=== PATIENT | female | born 1970 | race Caucasian/White ===

== ENCOUNTER 2018-04-22 12:35 | Outpatient (CLI) | payer BC | END 2018-04-22 12:36 | disposition home or self-care (01) | LOC: BICMAMMO 12:35 | PROVIDERS: ATTEND Physician Assistant Medical | DX: N64.9 Disorder of breast, unspecified (principal) | CPT/HCPCS: 77066; G0279 ==

== ENCOUNTER 2018-12-02 09:21 | Outpatient (CLI) | payer BC ==
[2018-12-02 11:36] LABS: #Basophils 0.1 thou/uL (0.0-0.2); #Eosinphils 0.2 thou/uL (0.0-0.7); #Monocytes 0.4 thou/uL (0.11-0.59); %Basophils 1.3 % (0.0-1.0); %Eosinophils 3.5 % (0.0-10.0); %Lymphocytes 34.6 % (21.0-51.0); %Monocytes 7.6 % (0.0-10.0); %Neutrophils 53.1 % (42.0-75.0); Hemoglobin 13.7 g/dL (12.0-16.0); Mean Corpuscular HGB CONC 32.6 g/dL (32.0-36.0); Mean Corpuscular Hemoglobin 27.8 pg (27.0-31.0); Mean Corpuscular Volume 85.1 fL (78.0-98.0); Mean Platelet Volume 8.4 fL (7.4-10.4); Platelet Count 268 thou/uL (130-400); RBC Distribution Width 13.7 % (11.5-14.5); Red Blood Cell (RBC) Count 4.93 mill/uL (4.20-5.40); White Blood Cell (WBC) Count 5.6 thou/uL (4.8-10.8)
[2018-12-02 11:39] LABS: Anion Gap 12 mmol/L (10-20); BUN (Urea Nitrogen) 15 mg/dL (7.0-18.7); Calc. Creatinine Clearance 0 mL/min (70-130); Calcium 9.5 mg/dL (7.8-10.44); Carbon Dioxide 25 mmol/L (22-29); Chloride 109 mmol/L (98-107); Estimated GFR-MDRD 76; Glucose 84 mg/dL (70-105); Sodium 141 mmol/L (136-145)
== END 2018-12-02 09:22 | disposition home or self-care (01) ==
LOC: LABBT 09:21
PROVIDERS: ATTEND Specialist
DX: Z01.818 Encounter for other preprocedural examination (principal); Q83.8 Other congenital malformations of breast
CPT/HCPCS: 80048; 85025; 93005; 93010

== ENCOUNTER 2023-08-02 17:00 | Outpatient (CLI) | payer BC | END 2023-08-02 17:01 | disposition home or self-care (01) | LOC: SLEEPLAB 17:00 | PROVIDERS: ATTEND Family Medicine | DX: G47.33 Obstructive sleep apnea (adult) (pediatric) (principal); G47.00 Insomnia, unspecified; R06.83 Snoring; K21.9 Gastro-esophageal reflux disease without esophagitis; F41.9 Anxiety disorder, unspecified; E66.9 Obesity, unspecified; F32.A Depression, unspecified; E55.9 Vitamin D deficiency, unspecified; E78.00 Pure hypercholesterolemia, unspecified; Z68.29 Body mass index [BMI] 29.0-29.9, adult | CPT/HCPCS: 95810 ==

== ENCOUNTER 2024-02-21 11:52 | Outpatient (CLI) | payer BC | END 2024-02-21 11:53 | disposition home or self-care (01) | LOC: BICMAMMO 11:52 | PROVIDERS: ATTEND Family Medicine | DX: Z12.31 Encounter for screening mammogram for malignant neoplasm of breast (principal) | CPT/HCPCS: 77063; 77067 ==